=== PATIENT | female | born 1985 | race Caucasian/White ===

== ENCOUNTER → 2021-06-06 | Emergency (ER) | payer BC ==
[~2021-06-06] MED LIST: FLEXERIL 10 MG10 MG PO; NAPROSYN500 MG PO
== END | disposition home or self-care (01) ==
LOC: ER1 18:55
DX: L02.415 Cutaneous abscess of right lower limb (principal)
CPT/HCPCS: 10060; 87070; 87205; 99283

== ENCOUNTER → 2021-09-13 | Outpatient (CLI) | payer BC | LOC: KOH-I 15:00 | DX: E04.2 Nontoxic multinodular goiter (principal) | CPT/HCPCS: 76536 ==

== ENCOUNTER → 2021-09-29 | Outpatient (CLI) | payer BC | END | disposition home or self-care (01) | LOC: US 10:00 | DX: E04.2 Nontoxic multinodular goiter (principal); Z80.8 Family history of malignant neoplasm of other organs or systems ==